=== PATIENT | male | born 1995 | race American Indian/Alaskan Native ===

== ENCOUNTER 2017-04-22 23:30 | Emergency (ER) | payer SELFPAY ==
[2017-04-23 00:56] VITALS: BP 115/82
--- NOTE | 2017-04-23 01:49 | XRay Report ---
FINAL REPORT EXAM: XR CHEST ROUTINE 2V HISTORY: Upper Respiratory Infection TECHNIQUE: PA and lateral views of the chest were submitted. FINDINGS: The heart size and mediastinum appear normal. The lungs are clear. Pleural fluid is not seen. The bones soft tissues are well maintained IMPRESSION: Within normal limits.
== END 2017-04-23 10:10 | disposition left against medical advice (07) ==
LOC: ED 23:30
DX: Z53.21 Procedure and treatment not carried out due to patient leaving prior to being seen by health care provider (principal)
CPT/HCPCS: 71046; 87400